=== PATIENT | male | born 1950 | race Caucasian/White ===

== ENCOUNTER 2022-07-07 02:39 | Emergency (ER) | payer OTHER ==
[~2022-07-07] VITALS: Ht 170.2 cm; Wt 86.4 kg
[~2022-07-07 02:39] MED LIST: ASPIRIN 81M81 MG/TA2 PO; CARTIA XT180 MG PO; CRESTOR20 MG PO; FISH OIL 1000MG1 CAP PO; GLUCOPHAGE1000 MG PO; HYDROCORTISO28.35 GM TP; IRON325 M2 PO; LOPRESSOR 550 MG/TAB PO; MULTI VITAMINS1 TAB PO; NAPROSYN 2250 MG/TAB PO; NATURAL C500 MG PO; NIACOR500 MG PO; NORCO 325 MG-7.1 TAB PO; VITAMIN D31000 I1 PO
[2022-07-07 02:43] VITALS: TEMP 97.4
[2022-07-07 02:54] LABS: BASO # 0.1 K/mm3 (0.0-0.2); BASO % 1.1 % (0.0-2.0); EOS # 0.6 K/mm3 (0.0-0.7); EOS % 4.6 % (0.0-4.0); GRAN # 6.9 K/mm3 (1.4-6.5); GRAN % 53.7 % (42.2-75.2); HEMOGLOBIN 17.9 g/dl (13.5-18.0); LYMPH # 4.1 K/mm3 (1.2-3.4); LYMPH % 31.8 % (20.0-51.0); MEAN CELL VOLUME 95 fl (80.0-100.0); MEAN CORPUSCULAR HEMOGLOBIN 32 pg (27-31); MEAN CORPUSCULAR HGB CONC 34 g/dl (33.0-37.0); MEAN PLATELET VOLUME 8.9 fl (7.4-10.4); MONO # 1.1 K/mm3 (0.1-0.6); MONO % 8.4 % (1.7-9.3); PLATELET COUNT 282 K/mm3 (130-400); RED BLOOD COUNT 5.59 M/mm3 (4.20-5.60); REDCELL DISTRIBUTION WIDTH-CV 12.8 % (11.5-14.5)
[2022-07-07 02:55] LABS: HEMATOCRIT 53.2 % (42.0-52.0)
[2022-07-07 03:14] LABS: ALANINE AMINOTRANSFERASE 28 U/L (0-55); ALKALINE PHOSPHATASE 99 U/L (40-150); ANION GAP 14 mmol/L (7-16); AST,SGOT 27 U/L (5-34); BILIRUBIN,TOTAL 1.2 mg/dL (0.2-1.2); BLOOD UREA NITROGEN 16 mg/dL (8-26); CALCIUM 10.1 mg/dL (8.4-10.2); CARBON DIOXIDE 23 mmol/L (23-31); CHLORIDE 103 mmol/L (98-107); CREATININE, serum 1.17 mg/dL (0.72-1.25); GLUCOSE 132 mg/dL (70-99); POTASSIUM 4.1 mmol/L (3.5-4.5); SODIUM 140 mmol/L (136-145); TOTAL PROTEIN 8.6 gm/dL (6.2-8.1)
[2022-07-07 03:24] LABS: TROPONIN-I < 0.010 ng/mL (0.00-0.033)
[2022-07-07 03:50] VITALS: BP 150/77; PULSE 72
== END 2022-07-07 03:58 | disposition home or self-care (01) ==
LOC: COL.ER 02:39
PROVIDERS: Emergency Medicine
DX: M79.601 Pain in right arm (principal); M79.604 Pain in right leg; I69.398 Other sequelae of cerebral infarction; I10 Essential (primary) hypertension; D72.829 Elevated white blood cell count, unspecified; Z28.310 Unvaccinated for COVID-19